=== PATIENT | female | born 1945 | race Caucasian/White ===

== ENCOUNTER 2018-01-27 07:04 | Day surgery (SDC) | payer MEDICARE, OTHER ==
[2017-08-29] MEDS: SODIUM HYALURONATE 14 MG/ML SYG IO (11:40)
[~2018-01-27 07:04] MED LIST: NALOXONE (0.4 MG/ML) INJ IV; SOD CHLORIDE 0.9% 1,000 ML IV
[2018-01-27] MEDS: MOXIFLOXACIN 0.5% 3 ML OPH OPER (08:18)
[2018-01-27] MEDS: TROPICAMIDE 1% 3 ML OPH OPER (08:18)
[2018-01-27] MEDS: PHENYLephrine 2.5% 15 ML OPH OPER (08:18)
[2018-01-27] MEDS: PREDNISOLONE ACET 1% 5 ML OPH OPER (08:18)
[2018-01-27] MEDS: PROPARACAINE 0.5% 15 ML OPH OPER (08:27)
[2018-01-27] MEDS ORDERED: LIDOCAINE 1% (MPF) 10 ML INJ (10:45)
[2018-01-27] MEDS ORDERED: NEOSTIGMINE 3 MG/3 ML SYRINGE (11:07)
[2018-01-27] MEDS ORDERED: ROCURONIUM 50 MG INJ (11:07)
[2018-01-27] MEDS ORDERED: PROPOFOL 20 ML (11:07)
[2018-01-27] MEDS ORDERED: FENTAnyl 50 MCG/ML VIAL (11:07)
[2018-01-27] MEDS ORDERED: MIDAZOLAM 1 MG/ML 2 ML INJ (11:07)
[2018-01-27] MEDS ORDERED: ONDANSETRON 4 MG INJ (11:07)
[2018-01-27] MEDS ORDERED: LIDOCAINE 2% (SDV) 5 ML INJ (11:07)
[2018-01-27] MEDS ORDERED: GLYCOPYRROLATE 0.4 MG INJ (11:07)
[2018-01-27] MEDS: LIDOCAINE 1% (MPF) 5 ML VIAL INJ (11:39)
[2018-01-27] MEDS: EPINEPHrine 1 MG IN 3 ML (1:3000) FOR *INTRA-OP* USE INJ (11:40)
== END 2018-01-27 13:46 | disposition home or self-care (01) ==
LOC: SDS 07:04
DX: H25.12 Age-related nuclear cataract, left eye (principal); H52.203 Unspecified astigmatism, bilateral
CPT/HCPCS: 66984; 82962

== ENCOUNTER 2018-02-10 06:30 | Day surgery (SDC) | payer MEDICARE, OTHER ==
[2018-02-10] MEDS ORDERED: GLYCOPYRROLATE 1 MG INJ (06:32)
[2018-02-10] MEDS ORDERED: PROPOFOL 20 ML (06:32)
[2018-02-10] MEDS ORDERED: NEOSTIGMINE 3 MG/3 ML SYRINGE (06:32)
[2018-02-10] MEDS ORDERED: ROCURONIUM 50 MG INJ (06:32)
[2018-02-10] MEDS: MOXIFLOXACIN 0.5% 3 ML OPH LEFT EYE (07:47)
[2018-02-10] MEDS: TROPICAMIDE 1% 3 ML OPH LEFT EYE (07:47)
[2018-02-10] MEDS: PREDNISOLONE ACET 1% 5 ML OPH LEFT EYE (07:47)
[2018-02-10] MEDS: PHENYLephrine 2.5% 15 ML OPH LEFT EYE (07:47)
[2018-02-10] MEDS: PROPARACAINE 0.5% 15 ML OPH LEFT EYE (07:48)
[2018-02-10] MEDS: SOD CHLORIDE 0.9% 1,000 ML IV ×2 (07:49→09:58)
[2018-02-10] MEDS ORDERED: FENTAnyl 50 MCG/ML VIAL (08:08)
[2018-02-10] MEDS ORDERED: MIDAZOLAM 1 MG/ML 2 ML INJ (08:09)
[2018-02-10] MEDS ORDERED: ONDANSETRON 4 MG INJ ×2 (08:09→10:04)
[2018-02-10] MEDS: LIDOCAINE 2% (SDV) 5 ML INJ (08:23)
[2018-02-10] MEDS ORDERED: TOBRAMYCIN/DEXAMETH 3.5 GM OPH OINT (08:24)
[2018-02-10] MEDS ORDERED: TETRACAINE 0.5% 4 ML OPH (08:24)
[2018-02-10] MEDS ORDERED: LIDOCAINE 4% CR (08:46)
[2018-02-10] MEDS ORDERED: hydrALAzine 20 MG INJ (08:46)
[2018-02-10] MEDS ORDERED: HYDROmorphONE 1 MG/5 ML IV SYRINGE IV ×3 (10:00→10:06)
[2018-02-10] MEDS ORDERED: FENTAnyl 50 MCG/ML VIAL IV ×2 (10:00)
[2018-02-10] MEDS ORDERED: ONDANSETRON 4 MG INJ IV (10:00)
[2018-02-10] MEDS ORDERED: HYDROmorphONE 1 MG/ML SYG (10:03)
[2018-02-10] MEDS: HYDROmorphONE 1 MG/5 ML IV SYRINGE IV (10:40)
== END 2018-02-10 11:25 | disposition home or self-care (01) ==
LOC: SDS 06:30
DX: H25.12 Age-related nuclear cataract, left eye (principal); H52.202 Unspecified astigmatism, left eye
CPT/HCPCS: 66984; 82962